=== PATIENT | female | born 1995 | race Two or more races ===

== ENCOUNTER 2016-10-21 03:54 | Emergency (ER) | payer OTHER ==
[~2016-10-21] VITALS: Ht 167.6 cm; Wt 59.0 kg
[2016-10-21] MEDS ORDERED: UNOBMED (03:56)
[2016-10-21 04:30] LABS: BASOPHILS % (AUTO) 0.4 % (0.0-2.0); LYMPHOCYTES % (AUTO) 18.3 % (20.0-45.0); MEAN CORPUSCULAR HEMOGLOBIN 29.6 PG (27.0-31.0); MEAN CORPUSCULAR HGB CONC 34.6 G/DL (32.0-36.0); MEAN CORPUSCULAR VOLUME 86 FL (80-99); MEAN PLATELET VOLUME 6.6 FL (6.5-10.1); MONOCYTES % (AUTO) 6.2 % (1.0-10.0); NEUTROPHILS % (AUTO) 74.1 % (45.0-75.0); PLATELET COUNT 271 K/UL (150-450); RED BLOOD COUNT 4.81 M/UL (4.20-5.40); RED CELL DISTRIBUTION WIDTH 10.6 % (11.6-14.8); WHITE BLOOD COUNT 9.4 K/UL (4.8-10.8)
[2016-10-21 04:47] LABS: ALANINE AMINOTRANSFERASE 18 U/L (3-33); ALBUMIN/GLOBULIN RATIO 2.1 (1.0-2.7); ANION GAP 15 (5-15); ASPARTATE AMINO TRANSFERASE 18 U/L (5-40); CALCIUM 9.4 mg/dL (8.6-10.2); CARBON DIOXIDE 20 mEQ/L (20-30); CHLORIDE 102 mEQ/L (98-107); CREATININE 0.8 mg/dL (0.5-0.9); GLOMERULAR FILTRATION RATE > 60 mL/min (>60); HEMOLYSIS 8; POTASSIUM 3.6 mEQ/L (3.4-4.9); SODIUM 137 mEQ/L (135-145); TOTAL PROTEIN 6.6 g/dL (6.6-8.7)
[2016-10-21 04:49] LABS: TROPONIN I < 0.30 ng/mL (<=0.30)
[2016-10-21 04:58] LABS: CKMB < 1.5 ng/mL (< 3.8)
[2016-10-21 05:00] VITALS: BP 143/70
--- NOTE | 2016-10-21 05:12 | Emergency Room Report ---
History of Present Illness General Chief Complaint: Chest Pain Source: Patient (EZEQUIEL RIZVI M.D.) Present Illness HPI 21YOF [place] last 2 weeks On control +smoker C/o chest pain, worse with deep breath for 1 week Woke her from sleep tonight, has been intermittent Denies leg pain/swelling, history of DVT, PE in family (EZEQUIEL RIZVI M.D.) Allergies: Coded Allergies: No Known Allergies (Unverified , 10/21/16) Patient History Past Medical History: none Past Surgical History: none Pertinent Family History: none Social History: Reports: smoking Last Menstrual Period: 08/2016 Now: No - control Immunizations: UTD Reviewed Nursing Documentation: PMH: Agreed, PSxH: Agreed (EZEQUIEL RIZVI M.D.) Nursing Documentation-PMH Past Medical History: No Stated History (EZEQUIEL RIZVI M.D.) Review of Systems All Other Systems: negative except mentioned in HPI (EZEQUIEL RIZVI M.D.) Physical Exam Vital Signs Date Time Temp Pulse Resp B/P Pulse Ox O2 Delivery O2 Flow Rate FiO2 10/21/16 03:50 98.8 106 18 108/67 100 Room Air Sp02 EP Interpretation: reviewed, normal General Appearance: normal inspection, well appearing, no apparent distress, alert, GCS 15, non-toxic Head: normocephalic, atraumatic Eyes: bilateral eye EOMI, bilateral eye PERRL ENT: normal ENT inspection, hearing grossly normal, normal voice Neck: normal inspection, full range of motion, supple, no bony tend Respiratory: normal inspection, lungs clear, normal breath sounds, no respiratory distress, no retraction, no wheezing, chest symmetrical, palpation of chest normal Cardiovascular #1: regular rate, rhythm, no edema Gastrointestinal: normal inspection, normal bowel sounds, non tender, soft, no guarding, no hernia Genitourinary: no CVA tenderness Musculoskeletal: normal inspection, back normal, normal range of motion, no calf tenderness, Fabian's Sign negative Neurologic: normal inspection, alert, oriented x3, responsive, book canvasser III-XII nml as tested, motor strength/tone normal, speech normal Psychiatric: normal inspection, judgement/insight normal, mood/affect normal Skin: normal inspection, normal color, no rash (EZEQUIEL RIZVI M.D.) Medical Decision Making Diagnostic Impression: Primary Impression: Chest pain Qualified Codes: R07.1 - Chest pain on breathing Additional Impression: Sinus tachycardia ER Course Pleuritic chest pain for 1 week Multiple risk factors for PE - control, + smoker, plane flights ECG is sinus tach. No RBBB, No [id number] Labs: No leuks. H&H stable. Troponin 0 D-dimer: elevated Will Do CT to r/o PE Endorsed to Dr Regalado at 630am to followup result of CT (EZEQUIEL RIZVI M.D.) ER Course This patient was turned over to me by Dr. Rizvi. This patient had presented with chest pain and tachycardia. She also had been on a long flight from [place]. She has undergone basic laboratory workup to include CBC, CMP and cardiac enzymes which were unremarkable. However, unfortunately she had an elevated d-dimer. Therefore, she was awaiting a CTA of the chest to assess for PE when I took over this patient. CT of the chest showed no pulmonary embolus and the main and lobar pulmonary arteries. Segmental pulmonary arteries were suboptimally evaluated. The patient had a heart rate in the 70s with a pulse ox of on her percent. She had no leg swelling and although she has some risk for PE given how well appearing she is to have a low suspicion for this at this time. The negative CT although not fully diagnostic it is reassuring. The patient was given return precautions and followup instructions. Labs Test 10/21/16 04:25 10/21/16 05:55 White Blood Count 9.4 K/UL (4.8-10.8) Red Blood Count 4.81 M/UL (4.20-5.40) Hemoglobin 14.2 G/DL (12.0-16.0) Hematocrit 41.1 % (37.0-47.0) Mean Corpuscular Volume 86 FL (80-99) Mean Corpuscular Hemoglobin 29.6 PG (27.0-31.0) Mean Corpuscular Hemoglobin Concent 34.6 G/DL (32.0-36.0) Red Cell Distribution Width 10.6 % (11.6-14.8) Platelet Count 271 K/UL (150-450) Mean Platelet Volume 6.6 FL (6.5-10.1) Neutrophils (%) (Auto) 74.1 % (45.0-75.0) Lymphocytes (%) (Auto) 18.3 % (20.0-45.0) Monocytes (%) (Auto) 6.2 % (1.0-10.0) Eosinophils (%) (Auto) 1.0 % (0.0-3.0) Basophils (%) (Auto) 0.4 % (0.0-2.0) D-Dimer 700 ng/mL (<500) Sodium Level 137 mEQ/L (135-145) Potassium Level 3.6 mEQ/L (3.4-4.9) Chloride Level 102 mEQ/L (98-107) Carbon Dioxide Level 20 mEQ/L (20-30) Anion Gap 15 (5-15) Blood Urea Nitrogen 15 mg/dL (7-23) Creatinine 0.8 mg/dL (0.5-0.9) Estimat Glomerular Filtration Rate > 60 mL/min (>60) Glucose Level 106 mg/dL (74-106) Calcium Level 9.4 mg/dL (8.6-10.2) Total Bilirubin 0.4 mg/dL (0.0-1.2) Aspartate Amino Transf (AST/SGOT) 18 U/L (5-40) Alanine Aminotransferase (ALT/SGPT) 18 U/L (3-33) Alkaline Phosphatase 70 U/L (35-104) Total Creatine Kinase 86 U/L (26-140) Creatine Kinase MB < 1.5 ng/mL (< 3.8) Creatine Kinase MB Relative Index 1.7 Troponin I < 0.30 ng/mL (<=0.30) Total Protein 6.6 g/dL (6.6-8.7) Albumin 4.5 g/dL (3.5-5.2) Globulin 2.1 g/dL Albumin/Globulin Ratio 2.1 (1.0-2.7) Urine HCG, Qualitative Negative (IAN VILLAR D.O.) EKG Diagnostic Results Rate: tachycardiac Rhythm: NSR ST Segments: no acute changes ASA given to the pt in ED: No (EZEQUIEL RIZVI M.D.) Rhythm Strip Diag. Results EP Interpretation: yes Rate: 109 Rhythm: NSR, no PVC's, no ectopy (EZEQUIEL RIZVI M.D.) CT/MRI/US Diagnostic Results CT/MRI/US Diagnostic Results : Imaging Test Ordered: CT chest Impression No pulmonary embolism in the main and lobar pulmonary arteries. Segmental pulmonary arteries are suboptimally evaluated due to suboptimal contrast bolus. Otherwise unremarkable. See official report. (IAN VILLAR D.O.) Last Vital Signs Date Time Temp Pulse Resp B/P Pulse Ox O2 Delivery O2 Flow Rate FiO2 10/21/16 03:55 106 18 Room Air 10/21/16 03:50 98.8 108/67 100 Status: improved (EZEQUIEL RIZVI M.D.) Disposition: HOME, SELF-CARE Condition: Improved Patient Instructions: Nonspecific Chest Pain EZEQUIEL RIZVI M.D. Oct 21, 2016 05:12 IAN VILLAR D.O. Oct 21, 2016 08:40
[2016-10-21 06:59] VITALS: BP 112/77
[2016-10-21 08:30] VITALS: BP 104/65
[2016-10-21 08:55] VITALS: BP 104/65
--- NOTE | 2016-10-21 10:07 | Diagnostic Imaging Report ---
ndication: SOB chest pain Technique: IV administration nonionic contrast. Spiral acquisitions obtained from the lung bases to the lung apices. Multiplanar and 3-D reconstructions were generated. Total dose length product 532 mGycm. CTDIvol(s) 12, 37, 15 mGy. Dose reduction achieved using automated exposure control Comparison: None Findings: Pulmonary arterial opacification is suboptimal, probably due to suboptimal bolus timing. Although there are no gross large vessel central pulmonary emboli, small peripheral emboli cannot be excluded with confidence. There is also some respiratory motion artifact at the lung bases. There is no evidence of thoracic aortic aneurysm or dissection. The heart size is normal. No pericardial effusion is evident. No evidence of right ventricular dilatation. No pulmonary arterial dilatation. There is classic anatomy of the great neck vessels. The lungs are clear. No infiltrates, masses, nodules, or effusions. No mediastinal or hilar mass or adenopathy. No pericardial effusion. Normal heart size. No axillary or chest wall mass or adenopathy. Normal thyroid. The included intra-abdominal anatomy is unremarkable. The bones are intact. Impression: Limited exam, as described, due to suboptimal contrast bolus timing. No gross large vessel central pulmonary embolus. Peripheral emboli are impossible to confidently exclude No acute pulmonary process This agrees with the preliminary interpretation provided overnight by [facility] teleradiology service. The CT scanner at [facility] is accredited by the [employer] and the scans are performed using protocols designed to limit radiation exposure to as low as reasonably achievable to attain images of sufficient resolution adequate for diagnostic evaluation.
--- NOTE | 2016-10-21 11:22 | Diagnostic Imaging Report ---
Indication: PAIN Technique: One view of the chest Comparison: none Findings: Lungs and pleural spaces are clear. Heart size is normal. Impression: No acute process
== END 2016-10-21 08:55 | disposition home or self-care (01) ==
LOC: EDBD 03:54 → EMR 04:25
DX: R07.1 Chest pain on breathing (principal); R00.0 Tachycardia, unspecified; F17.200 Nicotine dependence, unspecified, uncomplicated; Z79.3 Long term (current) use of hormonal contraceptives
CPT/HCPCS: 36415; 71010; 71275; 80053; 81025; 82550; 82553; 84484; 85025; 85379; 93005; 99284; Q9967